=== PATIENT | female | born 1975 ===

== ENCOUNTER → 2020-09-20 23:38 | Outpatient (CLI) | payer OTHER ==
[~2020-09-20 23:38] MED LIST: COZAAR100 MG PO; COZAAR50 MG PO; KATERZIA1 MG/1 ML; TOPROL XL25 M1 PO
== END | disposition home or self-care (01) ==
LOC: PPH VACUNA 23:38
DX: Z23 Encounter for immunization (principal)

== ENCOUNTER 2020-12-23 08:14 | Emergency (ER) | payer OTHER ==
[~2020-12-23] VITALS: Ht 172.7 cm; Wt 103.9 kg
[2020-12-23] MEDS ORDERED: KATERZIA1 MG/1 ML (08:21)
[2020-12-23] MEDS ORDERED: COZAAR100 MG PO ×2 (08:21→08:24)
[2020-12-23] MEDS ORDERED: COZAAR50 MG PO (08:22)
[2020-12-23] MEDS ORDERED: TOPROL XL25 M1 PO (08:22)
== END 2020-12-23 12:15 | disposition home or self-care (01) ==
LOC: ER 08:14
DX: I47.1 Supraventricular tachycardia (principal)

== ENCOUNTER 2021-05-30 02:00 | Outpatient (CLI) | payer OTHER | END 2021-05-30 02:30 | disposition home or self-care (01) | LOC: PPH VACUNA 02:00 | PROVIDERS: ATTEND Emergency Medicine Pediatric Emergency Medicine | DX: Z23 Encounter for immunization (principal) ==